=== PATIENT | female | born 2000 | race Caucasian/White ===

== ENCOUNTER 2021-03-04 11:08 | Emergency (ER) | payer OTHER ==
[~2021-03-04] VITALS: Ht 182.9 cm; Wt 119.0 kg
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
[2021-03-04 12:34] VITALS: BP 151/91
--- NOTE | 2021-03-04 12:47 | RAD ---
EXAM: 3 views left hand DATE: 03/04/2021 12:05 PM INDICATION: Reason: 2ND PIP JOINT PAIN, TRAUMA / Spl. Instructions: / History: . COMPARISON: No Prior FINDINGS/ IMPRESSION: There is a small avulsion fracture at the palmar aspect of the base of the middle phalanx with approx imately 1-2 mm displacement. Moderate associated soft tissue swelling. Electronically signed by: Marshall Blair MD (03/04/2021 12:44 PM) [email or web address]
== END 2021-03-04 13:40 | disposition home or self-care (01) ==
LOC: ER 11:08
DX: S62.621A Displaced fracture of middle phalanx of left index finger, initial encounter for closed fracture (principal); W50.0XXA Accidental hit or strike by another person, initial encounter; Y93.89 Activity, other specified; Y92.89 Other specified places as the place of occurrence of the external cause; Y99.8 Other external cause status
CPT/HCPCS: 29130; 73140; 99283

== ENCOUNTER 2021-03-09 11:04 | Emergency (ER) | payer OTHER ==
[~2021-03-09] VITALS: Ht 182.9 cm; Wt 118.2 kg
[2021-03-09 11:14] VITALS: BP 176/118
[2021-03-09] MEDS ORDERED: IBUPROFEN 200 MG TABLET. PO ONE (12:15)
[2021-03-09] MEDS ORDERED: BACITRACIN TOPICAL OINT PACKET. TP ONE (12:15)
[2021-03-09] MEDS ORDERED: DIPH,PERTUSS(ACELL),TET VAC/PF 0.5 ML SYRINGE. VAX IM ONE (12:15)
--- NOTE | 2021-03-09 12:47 | NUR ---
Ointment and non-adherent pad applied to pt's index and middle fingers on her left hand. Pt's index finger splinted using a aluminum/foam finger splint and secure with athletic tape. Pt's middle finger wrapped in rolled gauze then radha-taped using remainder of the rolled gauze.
[2021-03-09] MEDS ORDERED: BACI28.34 TP (13:21)
[2021-03-09] MEDS ORDERED: HYDR-2761 PO (13:21)
[2021-03-09] MEDS ORDERED: IBUP-1007 PO (13:21)
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
== END 2021-03-09 13:34 | disposition home or self-care (01) ==
LOC: ER 11:04
DX: T23.242A Burn of second degree of multiple left fingers (nail), including thumb, initial encounter (principal); Y27.2XXA Contact with hot fluids, undetermined intent, initial encounter; Y93.89 Activity, other specified; Y92.69 Other specified industrial and construction area as the place of occurrence of the external cause; Y99.0 Civilian activity done for income or pay
CPT/HCPCS: 16000; 90471; 90715; 99283-25